=== PATIENT | male | born 1965 | race Caucasian/White ===

== ENCOUNTER → 2019-08-02 | Outpatient (CLI) | payer OTHER ==
--- NOTE | 2019-08-02 14:06 | RAD ---
EXAM: Left knee, 3 views. HISTORY: Pain and swelling. COMPARISON: 01/25/2015 FINDINGS: 3 views of the left knee are obtained. There is medial compartment joint space narrowing and spurring. There is a small joint effusion. There is no fracture, dislocation or subluxation. IMPRESSION: 1. Medial compartment osteoarthritis of the left knee. 2. Small left knee effusion. Electronically signed by: Yelitza Pena MD (08/02/2019 2:03 PM) [id number]
== END | disposition home or self-care (01) ==
LOC: RAD 13:14
PROVIDERS: ATTEND Nurse Practitioner Family
DX: M17.12 Unilateral primary osteoarthritis, left knee (principal); M25.462 Effusion, left knee
CPT/HCPCS: 73562

== ENCOUNTER 2021-05-18 14:39 | Emergency (ER) | payer SELFPAY ==
[~2021-05-18] VITALS: Ht 182.9 cm; Wt 83.6 kg
[2021-05-18] MEDS ORDERED: ASPIRIN CHEWABLE 81 MG TABLET. PO ONE (15:30)
[2021-05-18] MEDS ORDERED: IV NORMAL SALINE 1,000ML 1,000 ML IV SCH (15:30)
[2021-05-18] MEDS ORDERED: MORPHINE SULFATE 4 MG/ML DISP.SYRIN. IV/SQ PRN (15:30)
[2021-05-18 15:37] LABS: BASO # 0.2 x10^3/uL (0.0-0.2); BASO % 3 % (0-3); EOS % 1 % (0-3); HEMATOCRIT 41.7 % (39.0-53.0); HEMOGLOBIN 14.3 g/dL (13.0-17.5); LYMPH # 2.9 x10^3/uL (1.0-4.8); LYMPH % 49 % (24-48); MEAN CORPUSCULAR HEMOGLOBIN 35 pg (25-35); MEAN CORPUSCULAR HGB CONC 34 g/dL (31-37); MEAN CORPUSCULAR VOLUME 103 fL (79-100); MONO # 0.5 x10^3/uL (0.0-1.1); MONO % 9 % (0-9); NEUT # 2.3 x10^3uL (1.8-7.7); NEUT % 39 % (31-73); PLATELET COUNT 232 x10^3/uL (140-400); RED BLOOD COUNT 4.05 x10^6/uL (4.30-5.70); WHITE BLOOD COUNT 5.9 x10^3/uL (4.0-11.0)
[2021-05-18 15:57] LABS: CALCIUM 8.9 mg/dL (8.5-10.1); CREATININE 0.8 mg/dL (0.7-1.3); GFR 101.1
--- NOTE | 2021-05-18 16:04 | EKG ---
[address] [address] Test Date: 2021-05-18 Test Time: 14:47:10 Pat Name: CRISTIAN SCHUMACHER Department: Room: Gender: M Case Picker: TYESHA : [id number] Requested By: ELLA GASPAR Order Number: [id number] Reading MD: Philip Knott Measurements Intervals [place] Rate: 82 P: 56 DC: 148 QRS: -17 QRSD: 94 T: 52 QT: 372 QTc: 438 Interpretive Statements SINUS RHYTHM LEFTWARD AXIS Electronically Signed On 05-18-2021 16:17:30 EMBEDDED SOFTWARE DEVELOPMENT ENGINEER by Philip Knott
[2021-05-18 16:10] LABS: ALBUMIN 4.7 g/dL (3.4-5.0); ALBUMIN/GLOBULIN RATIO 1.6 (1.0-1.7); MAGNESIUM 1.9 mg/dL (1.8-2.4); TOTAL BILIRUBIN 0.6 mg/dL (0.2-1.0); TOTAL PROTEIN 7.7 g/dL (6.4-8.2)
[2021-05-18 16:25] LABS: CLARITY,URINE CLEAR; COLOR,URINE YELLOW
[2021-05-18 16:26] LABS: BACTERIA,URINE 0 /HPF (0-FEW); BILIRUBIN,URINE NEG (NEG); GLUCOSE,URINE NEG (NEG); NITRITE,URINE NEG (NEG); RBC,URINE 0 /HPF (0-2); UROBILINOGEN,URINE 0.2 mg/dL (0.2 mg/dL); WBC,URINE 0 /HPF (0-4)
--- NOTE | 2021-05-18 16:26 | PHYS DOC ---
Past History Past Surgical History: Tonsillectomy Alcohol Use: Heavy General Adult EDM: Chief Complaint: CHEST PAIN HPI: HPI: Patient is a 55-year-old male who presents with chest pain that started while he was watching the [employer] game today. Patient states he was sitting there when all of a sudden he had sharp pain all across his chest. Patient states "I have had episodes like this before but this time it brought me to my knees". Patient is currently reporting pain. Pain radiated to his right arm. Denies nausea/vomiting, denies shortness of breath, dizziness. Denies family history of sudden cardiac event. Patient is a daily drinker, smokes 1 pack a day, uses marijuana. Review of Systems: Review of Systems: ROS At least 10 ROS systems have been reviewed and are negative except as documented in the HPI. General: Negative except as outlined in HPI above. Skin: Negative except as outlined in HPI above. HEENT: Negative except as outlined in HPI above. Neck: Negative except as outlined in HPI above. Respiratory: Negative except as outlined in HPI above.. Cardiovascular: Negative except as outlined in HPI above. Abdomen: Negative except as outlined in HPI above. : Negative except as outlined in HPI above. Back/MSK: Negative except as outlined in HPI above. Neuro: Negative except as outlined in HPI above. Psych: Negative except as outlined in HPI above. Current Medications: Current Meds: Current Medications Medications (Trade) Dose Ordered Sig/Lisa Start Time Stop Time Status Last Admin Dose Admin Aspirin (Aspirin Chewable) 324 mg 1X ONCE 05/18/21 15:30 05/18/21 15:31 DC 05/18/21 16:02 324 MG Morphine Sulfate (Morphine 4mg Syringe) 4 mg PRN Q15MIN PRN 05/18/21 15:30 05/19/21 15:29 Sodium Chloride 1,000 ml @ 1,000 mls/hr Q1H 05/18/21 15:30 05/18/21 16:29 05/18/21 16:02 1,000 MLS/HR Allergies: Allergies: Allergies Coded Allergies Type Severity Reaction Last Updated Verified Penicillins Allergy Unknown 05/18/21 Yes Physical Exam: PE: Constitutional: Well developed, well nourished, no acute distress, non-toxic appearance. [] HENT: Normocephalic, atraumatic, bilateral external ears normal, oropharynx moist, no oral exudates, nose normal. [] Eyes: PERRLA, EOMI, conjunctiva normal, no discharge. [] Neck: Normal range of motion, no tenderness, supple, no stridor. [] Cardiovascular:Heart rate regular rhythm, no murmur [] Lungs & Thorax: Bilateral breath sounds clear to auscultation [] Abdomen: Bowel sounds normal, soft, no tenderness, no masses, no pulsatile masses. [] Skin: Warm, dry, no erythema, no rash. [] Back: No tenderness, no CVA tenderness. [] Extremities: No tenderness, no cyanosis, no clubbing, ROM intact, no edema. [] Neurologic: Alert and oriented X 3, normal motor function, normal sensory function, no focal deficits noted. [] Psychologic: Affect normal, judgement normal, mood normal. [] Current Patient Data: Labs: Laboratory Tests Test 05/18/21 14:47 White Blood Count 5.9 x10^3/uL (4.0-11.0) Red Blood Count 4.05 x10^6/uL (4.30-5.70) L Hemoglobin 14.3 g/dL (13.0-17.5) Hematocrit 41.7 % (39.0-53.0) Mean Corpuscular Volume 103 fL (79-100) H Mean Corpuscular Hemoglobin 35 pg (25-35) Mean Corpuscular Hemoglobin Concent 34 g/dL (31-37) Red Cell Distribution Width 13.0 % (11.5-14.5) Platelet Count 232 x10^3/uL (140-400) Neutrophils (%) (Auto) 39 % (31-73) Lymphocytes (%) (Auto) 49 % (24-48) H Monocytes (%) (Auto) 9 % (0-9) Eosinophils (%) (Auto) 1 % (0-3) Basophils (%) (Auto) 3 % (0-3) Neutrophils # (Auto) 2.3 x10^3uL (1.8-7.7) Lymphocytes # (Auto) 2.9 x10^3/uL (1.0-4.8) Monocytes # (Auto) 0.5 x10^3/uL (0.0-1.1) Eosinophils # (Auto) 0.0 x10^3/uL (0.0-0.7) Basophils # (Auto) 0.2 x10^3/uL (0.0-0.2) Sodium Level 138 mmol/L (136-145) Potassium Level 4.0 mmol/L (3.5-5.1) Chloride Level 97 mmol/L (98-107) L Carbon Dioxide Level 25 mmol/L (21-32) Anion Gap 16 (6-14) H Blood Urea Nitrogen 5 mg/dL (8-26) L Creatinine 0.8 mg/dL (0.7-1.3) Estimated GFR (Cockcroft-Gault) 101.1 BUN/Creatinine Ratio 6 (6-20) Glucose Level 83 mg/dL (70-99) Calcium Level 8.9 mg/dL (8.5-10.1) Magnesium Level 1.9 mg/dL (1.8-2.4) Total Bilirubin 0.6 mg/dL (0.2-1.0) Aspartate Amino Transferase (AST) 48 U/L (15-37) H Alanine Aminotransferase (ALT) 45 U/L (16-63) Alkaline Phosphatase 89 U/L (46-116) Creatine Kinase 310 U/L (39-308) H Troponin I High Sensitivity 11 ng/L (4-75) IK-Xtn-M-Type Natriuretic Peptide 40 pg/mL (0-124) Total Protein 7.7 g/dL (6.4-8.2) Albumin 4.7 g/dL (3.4-5.0) Albumin/Globulin Ratio 1.6 (1.0-1.7) Lipase 215 U/L (73-393) Vital Signs: Vital Signs Date Time Temp Pulse Resp B/P (MAP) Pulse Ox O2 Delivery O2 Flow Rate FiO2 05/18/21 14:39 83 165/112 (129) 100 05/18/21 14:39 24 Room Air EKG: EKG: Sinus rhythm, heart rate 82 bpm. [] Radiology/Procedures: Radiology/Procedures: []Exam Date: 05/18/2021 4:14 PM XR CHEST 1V Indication: Reason: sob / Spl. Instructions: / History: . FINDINGS/ IMPRESSION: There is a 4 mm linear radiodensity in the right midlung field of indeterminate etiology or clinical significance. The cardiac silhouette and pulmonary vasculature are within normal limits. There is no focal consolidation, pleural effusion or pneumothorax. The visualized osseous structures are intact. Electronically signed by: Rod Montes MD (05/18/2021 4:34 PM) [facility] EXAMINATION: CT Pulmonary Angiogram with IV contrast INDICATION: Reason: CP, SOA, ELEVATED D DIMER, OMNI 350, 100ml / Spl. Instructi ons: / History: COMPARISON: Same day chest radiograph TECHNIQUE: Using helical technique, CT data from the thoracic inlet through the upper abdomen was obtained during rapid IV contrast infusion. The examination was timed to the pulmonary arterial system to generate a CT angiographic study. 3D MIPS, sagittal and coronal reformats were generated. FINDINGS: Vascular: The study is diagnostic to the level of the segmental pulmonary arteries. There is appropriate opacification of pulmonary arteries. Pulmonary arteries: No evidence of acute or chronic pulmonary embolism. The pulmonary arteries are normal in size. Thoracic aorta: Normal in size. Pulmonary veins: Normal drainage into the left atrium. Coronary arteries: Normal origins. Moderate calcified coronary atherosclerosis. Systemic veins: Within normal limits. Heart: The heart is normal in size. No pericardial effusion. Chest: Lungs/Pleura: There are diffuse centrilobular groundglass nodules which can be seen in the setting of smoking-related respiratory bronchiolitis. There is mild bronchial wall thickening suggestive of nonspecific nonspecific bronchiolitis. No suspicious pulmonary nodules are visualized. No pleural effusion or focal pleural lesion. Mediastinum: No pathologic mediastinal or hilar adenopathy The visualized thyroid is unremarkable. Mild distal esophageal wall thickening may relate to reflux dysphagia process. Axilla/Soft Tissue: No supraclavicular or axillary adenopathy. Regional soft tissues are within normal limits. Upper abdomen: There is diffuse confluent opacities steatosis. No evidence of acute abnormality visualized upper abdomen. Bones: No evidence of acute fractures or aggressive osseous lesions. IMPRESSION: Vascular: 1. No evidence of pulmonary embolism. Chest: 1. Peribronchial thickening which is a nonspecific finding that can be seen with bronchiolitis versus reactive airway disease. No confluent infiltrates. 2. Diffuse hepatic steatosis. PRQS compliance statement - One or more of the following individualized dose reduction techniques were utilized for this study: 1. Automated exposure control 2. Adjustment of the mA and/or kV according to patient size 3. Use of iterative reconstruction technique Electronically signed by: Heath Roque DO (05/18/2021 7:21 PM) [facility] Heart Score: C/O Chest Pain: Yes HEART Score for Chest Pain: HEART Score for Chest Pain Response (Comments) Value History Moderately Suspicious 1 ECG Normal 0 Age >45 - < 65 1 Risk Factors No Risk Factors 0 Troponin < Normal Limit 0 Total 2 Risk Factors: Risk Factors: DM, Current or recent (<one month) smoker, HTN, HLP, family history of CAD, obesity. Risk Scores: Score 0 - 3: 2.5% MACE over next 6 weeks - Discharge Home Score 4 - 6: 20.3% MACE over next 6 weeks - Admit for Clinical Observation Score 7 - 10: 72.7% MACE over next 6 weeks - Early Invasive Strategies Course & Med Decision Making: Course & Med Decision Making Pertinent Labs and Imaging studies reviewed. (See chart for details) [] 55-year-old male presents with chest pain that started today. Pain radiates to his right arm. Work-up in ER consist of labs, urinalysis, EKG, chest x-ray. EKG showed a sinus rhythm. Heart rate [address] elevation or depression. Patient given NS bolus. 324 chewable aspirin. UA negative for infection. Patient reported an increase in chest pain. Repeat EKG was performed which showed sinus rhythm. Heart rate 74 bpm. No STEMI. Patient given GI cocktail to try and help with pain. First troponin is negative. CTA is negative for pulmonary embolism. Second troponin is negative. Heart score of 2. Discussed all results with patient. Advised patient he needs to make a follow- up appointment with cardiology for a stress test and further work-up. I gave patient the number to cardiology for a follow-up appointment. Dani Disclaimer: Dani Disclaimer: This electronic medical record was generated, in whole or in part, using a voice recognition dictation system. Departure Departure: Impression: Primary Impression: Chest pain Qualified Codes: R07.1 - Chest pain on breathing Disposition: HOME / SELF CARE / HOMELESS Condition: STABLE Referrals: PCP,DAV (PCP) FARA POTTS MD Patient Instructions: Chest Pain (Nonspecific), [id number] Additional Instructions: You were seen in the emergency room for chest pain. All of your labs were unremarkable. Cardiac symptoms labs were negative. All imaging was unrem arkable. You need to make an appointment with cardiology for a follow-up appointment for stress test and further management. Especially since these events continue to occur. Make sure that you return to the emergency room if you have an increase in chest pain, shortness of breath, or any worsening symptoms or concerns. I have included a general maintenance engineer phone number for you to call make an appointment. EMERGENCY DEPARTMENT GENERAL DISCHARGE INSTRUCTIONS Thank you for coming to [facility] (ED) today and trusting us with you care. We trust that you had a positivie experience in our Emergency Department. If you wish to speak to the department management, you may call the director at [phone]. YOUR FOLLOW UP INSTRUCTIONS ARE FOLLOWS: 1. Do you have a private Doctor? If you do not have a private doctor, please ask for a resource list of physicians or clinics that may be able to assist you with follow up care. 2. The Emergency Physician has interpreted your x-rays. The X-Ray specialist will also review them. If there is a change in the findings, you will be notified in 48 hours when at all possible. 3. A lab test or culture has been done, your results will be reviewed and you will be notified if you need a change in treatment. ADDITIONAL INSTRUCTIONS AND INFORMATION: 1. Your care today has been supervised by a physician who is specially trained in emergency care. Many problems require more than one evaluation for a complete diagnosis and treatment. We recommend that you schedule your follow up appointment as recommended to ensure complete treatment of you illness or injury. If you are unable to obtain follow up care and continue to have a problem, or if your condition worsens, we recommend that you return to the ED. 2. We are not able to safely determine your condition over the phone nor are we able to give sound medical advice over the phone. For these safety reasons, if you call for medical advice we will ask you to come to the ED for further evaluation. 3. If you have any questions regarding these discharge instructions please call the ED at [phone]. SAFETY INFORMATION: In the interest of safety, wellness, and injury prevention; we encourage you to wear your sealbelt, if you smoke; quite smoking, and we encourage family to use a protective helmet for bicycling and other sporting events that present an increased risk for head injury. IF YOUR SYMPTOMS WORSEN OR NEW SYMPTOMS DEVELOP, OR YOU HAVE CONCERNS ABOUT YOUR CONDITION; OR IF YOUR CONDITION WORSENS WHILE YOU ARE WAITING FOR YOUR FOLLOW UP APPOINTMENT; EITHER CONTACT YOUR PRIMARY CARE DOCTOR, THE PHYSICIAN WHOSE NAME AND NUMBER YOU WERE GIVEN, OR RETURN TO THE ED IMMEDIATELY. ELLA GASPAR APRN May 18, 2021 16:26
--- NOTE | 2021-05-18 16:36 | RAD ---
Exam Date: 05/18/2021 4:14 PM XR CHEST 1V Indication: Reason: sob / Spl. Instructions: / History: . FINDINGS/ IMPRESSION: There is a 4 mm linear radiodensity in the right midlung field of indeterminate etiology or clinical significance. The cardiac silhouette and pulmonary vasculature are within normal limits. There is no focal consolidation, pleural effusion or pneumothorax. The visualized osseous structures are intact. Electronically signed by: Rod Montes MD (05/18/2021 4:34 PM) [facility]
[2021-05-18] MEDS ORDERED: LIDO:MAALOX 1:1 20 ML SINGLE DOSE. PO ONE (16:45)
--- NOTE | 2021-05-18 16:48 | EKG ---
[address] [address] Test Date: 2021-05-18 Test Time: 16:39:49 Pat Name: CRISTIAN SCHUMACHER Department: Room: Gender: M Ux Researcher: TYESHA : 1965 Requested By: ELLA GASPAR Order Number: [id number] Reading MD: Measurements Intervals [place] Rate: 74 P: UT: QRS: -23 QRSD: 92 T: 3 QT: 384 QTc: 427 Interpretive Statements IRREGULAR RHYTHM, NO P-WAVE FOUND LEFTWARD AXIS OTHERWISE NORMAL ECG RI6.02 No previous ECG available for comparison
[2021-05-18] MEDS ORDERED: IOHEXOL 350 MG/ML 100 ML VIAL. IV ONE (18:30)
--- NOTE | 2021-05-18 19:23 | RAD ---
EXAMINATION: CT Pulmonary Angiogram with IV contrast INDICATION: Reason: CP, SOA, ELEVATED D DIMER, OMNI 350, 100ml / Spl. Instructions: / History: COMPARISON: Same day chest radiograph TECHNIQUE: Using helical technique, CT data from the thoracic inlet through the upper abdomen was obt ained during rapid IV contrast infusion. The examination was timed to the pulmonary arterial system t o generate a CT angiographic study. 3D MIPS, sagittal and coronal reformats were generated. FINDINGS: Vascular: The study is diagnostic to the level of the segmental pulmonary arteries. There is appropriate opacif ication of pulmonary arteries. Pulmonary arteries: No evidence of acute or chronic pulmonary embolism. The pulmonary arteries are no rmal in size. Thoracic aorta: Normal in size. Pulmonary veins: Normal drainage into the left atrium. Coronary arteries: Normal origins. Moderate calcified coronary atherosclerosis. Systemic veins: Within normal limits. Heart: The heart is normal in size. No pericardial effusion. Chest: Lungs/Pleura: There are diffuse centrilobular groundglass nodules which can be seen in the setting of smoking-related respiratory bronchiolitis. There is mild bronchial wall thickening suggestive of non specific nonspecific bronchiolitis. No suspicious pulmonary nodules are visualized. No pleural effus ion or focal pleural lesion. Mediastinum: No pathologic mediastinal or hilar adenopathy The visualized thyroid is unremarkable. Mi ld distal esophageal wall thickening may relate to reflux dysphagia process. Axilla/Soft Tissue: No supraclavicular or axillary adenopathy. Regional soft tissues are within braeden l limits. Upper abdomen: There is diffuse confluent opacities steatosis. No evidence of acute abnormality visua lized upper abdomen. Bones: No evidence of acute fractures or aggressive osseous lesions. IMPRESSION: Vascular: 1. No evidence of pulmonary embolism. Chest: 1. Peribronchial thickening which is a nonspecific finding that can be seen with bronchiolitis versus reactive airway disease. No confluent infiltrates. 2. Diffuse hepatic steatosis. PRQS compliance statement - One or more of the following individualized dose reduction techniques wer e utilized for this study: 1. Automated exposure control 2. Adjustment of the mA and/or kV according to patient size 3. Use of iterative reconstruction technique Electronically signed by: Heath Roque DO (05/18/2021 7:21 PM) [facility]
[2021-05-18 19:43] VITALS: BP 134/93
== END 2021-05-18 20:11 | disposition home or self-care (01) ==
LOC: ER 14:39
DX: R07.1 Chest pain on breathing (principal); F10.20 Alcohol dependence, uncomplicated; Z88.0 Allergy status to penicillin; Y90.9 Presence of alcohol in blood, level not specified
CPT/HCPCS: 36415; 71045; 71275; 80053; 81001; 82550; 83690; 83735; 83880; 84484; 85025; 85379; 85610; 85730; 93005; 96360; 99285; J7030; Q9967